=== PATIENT | female | born 1995 | race Caucasian/White ===

== ENCOUNTER 2021-01-29 01:25 | Inpatient (IN) | payer BC ==
[~2021-01-29] VITALS: Ht 157.5 cm; Wt 102.3 kg
[2021-01-29] MEDS: LACTATED RINGERS 1,000 ML IV SCH (01:19)
[2021-01-29 02:06] VITALS: BP 126/69
[2021-01-29] MEDS ORDERED: D5%-LACTATED RINGERS 1,000 ML IV SCH (05:00)
[2021-01-29] MEDS ORDERED: OXYTOCIN 30U/ 0.9% NaCL 500ML 500 ML IV PRN (05:00)
[2021-01-29] MEDS ORDERED: CALCIUM CARBONATE 500 MG TAB.CHEW PO PRN (05:00)
[2021-01-29] MEDS ORDERED: ONDANSETRON 2MG/ML, 2ML IVPush PRN ×2 (05:00→23:30)
[2021-01-29] MEDS ORDERED: OXYTOCIN 30U/ 0.9% NaCL 500ML 500 ML IV ONE (05:00)
[2021-01-29] MEDS ORDERED: FENTANYL PF 100 MCG/2ML IV PRN (05:00)
[2021-01-29] MEDS ORDERED: TERBUTALINE 1 MG/ML, 1ML SQ PRN (05:00)
[2021-01-29] MEDS ORDERED: TERBUTALINE 1 MG/ML, 1ML IVPush PRN (05:00)
[2021-01-29] MEDS ORDERED: FENTANYL PF 100 MCG/2ML IVPush PRN (05:00)
[2021-01-29 05:34] LABS: BASOPHILS % (AUTO) 1 % (0-1); EOSINOPHILS % (AUTO) 1 % (1-7); LYMPHOCYTES % (AUTO) 25 % (22-44); MEAN CORPUSCULAR HEMOGLOBIN 28.1 pg (27.0-34.8); MEAN CORPUSCULAR HGB CONC 33.1 g/dL (32.4-35.8); MEAN PLATELET VOLUME 8.6 fL (7.4-10.4); MONOCYTES % (AUTO) 9 % (2-9); NEUTROPHILS % (AUTO) 65 % (42-75); PLATELET COUNT 164 x10^3/uL (130-400); RED CELL DISTRIBUTION WIDTH 16.1 % (9.6-15.2)
[2021-01-29 19:00] VITALS: BP 115/66
[2021-01-29] MEDS ORDERED: BUPIVACAINE 0.25% ONE (21:30)
[2021-01-29] MEDS ORDERED: FENTANYL/BUPIV./NS/PF 250 ML EPIDCONT ONE (21:30)
[2021-01-29] MEDS ORDERED: DIPHENHYDRAMINE 50 MG/ML, 1ML IVPush PRN (23:30)
[2021-01-29] MEDS ORDERED: LACTATED RINGERS 1,000 ML IVBOLUS PRN (23:30)
[2021-01-29] MEDS ORDERED: LACTATED RINGERS 1,000 ML IV SCH (23:30)
[2021-01-29] MEDS ORDERED: EPHEDRINE 50 MG/ML, 1ML IVPush PRN (23:30)
[2021-01-29] MEDS ORDERED: FENTANYL/BUPIV./NS/PF 250 ML EPIDCONT SCH (23:30)
[2021-01-29] MEDS ORDERED: NALOXONE 0.4 MG/ML, 1ML IVPush PRN (23:30)
[2021-01-30] MEDS: LACTATED RINGERS 1,000 ML IV SCH ×5 (05:28→19:30)
[2021-01-30] MEDS ORDERED: METOCLOPRAMIDE 5 MG/ML, 2ML ONE (06:34)
[2021-01-30] MEDS ORDERED: SODIUM CITRATE/CITRIC ACID 15 ML UDC ONE ×2 (06:34)
[2021-01-30] MEDS ORDERED: FENTANYL PF 250 MCG/5ML ONE (06:48)
[2021-01-30] MEDS ORDERED: ALBUTEROL SULFATE 2.5 MG/3 ML ONE (07:41)
[2021-01-30] MEDS ORDERED: HYDROmorphone 2 MG/ML, 1ML ONE (07:46)
[2021-01-30] MEDS ORDERED: DIPHENHYDRAMINE 50 MG/ML, 1ML IVPush PRN (08:00)
[2021-01-30] MEDS ORDERED: FENTANYL PF 100 MCG/2ML IV PRN (08:00)
[2021-01-30] MEDS ORDERED: HYDROmorphone 1 MG/ML, 1ML INJ IVPush PRN (08:00)
[2021-01-30] MEDS ORDERED: OXYcodone 5 MG/5 ML ORAL.SOL UDC PO PRN (08:00)
[2021-01-30] MEDS ORDERED: EPHEDRINE 50 MG/ML, 1ML IVPush PRN (08:00)
[2021-01-30] MEDS ORDERED: ONDANSETRON 2MG/ML, 2ML IVPush PRN (08:00)
[2021-01-30 08:35] VITALS: BP 109/70
[2021-01-30] MEDS ORDERED: OXYcodone IR 5MG TABLET PO PRN ×2 (09:30)
[2021-01-30] MEDS ORDERED: ONDANSETRON 2MG/ML, 2ML IV PRN (09:30)
[2021-01-30] MEDS ORDERED: morphine SULFATE 10 MG/ML, 1ML IVPush PRN (09:30)
[2021-01-30] MEDS: OXYTOCIN 30U/ 0.9% NaCL 500ML 500 ML IV SCH ×2 (09:30→19:30)
[2021-01-30] MEDS ORDERED: ACETAMINOPHEN 325 MG TABLET PO PRN ×2 (09:30)
[2021-01-30] MEDS ORDERED: morphine SULFATE 10 MG/ML, 1ML IM PRN (09:30)
[2021-01-30] MEDS ORDERED: HYDROcodone/APAP 5/325 TABLET PO PRN ×2 (09:30)
[2021-01-30] MEDS: OXYcodone/APAP 5/325MG TABLET PO PRN ×3 (10:11→21:18)
[2021-01-30 10:15] VITALS: BP 115/75
[2021-01-30] MEDS: KETOROLAC 30 MG/1 ML IV SCH ×3 (10:15→21:17)
[2021-01-30 12:35] VITALS: BP 99/66
[2021-01-30 15:10] LABS: BASOPHILS % (AUTO) 1 % (0-1); EOSINOPHILS % (AUTO) 0 % (1-7); LYMPHOCYTES % (AUTO) 3 % (22-44); MEAN CORPUSCULAR HEMOGLOBIN 28.3 pg (27.0-34.8); MEAN CORPUSCULAR HGB CONC 32.9 g/dL (32.4-35.8); MEAN PLATELET VOLUME 8.8 fL (7.4-10.4); MONOCYTES % (AUTO) 5 % (2-9); NEUTROPHILS % (AUTO) 91 % (42-75); PLATELET COUNT 124 x10^3/uL (130-400); RED BLOOD COUNT 3.85 x10^6/uL (3.82-5.3); RED CELL DISTRIBUTION WIDTH 15.7 % (9.6-15.2)
[2021-01-30 16:00] VITALS: BP 101/62
[2021-01-30 19:00] VITALS: BP 95/61
[2021-01-30] MEDS: DOCUSATE 100 MG CAPSULE PO PRN (21:17)
[2021-01-30] MEDS: SIMETHICONE 80 MG CHEW TAB PO PRN (21:17)
[2021-01-31 00:05] VITALS: BP 103/70
[2021-01-31] MEDS: LACTATED RINGERS 1,000 ML IV SCH ×2 (01:30→05:30)
[2021-01-31] MEDS: OXYcodone/APAP 5/325MG TABLET PO PRN ×4 (01:42→22:19)
[2021-01-31] MEDS: KETOROLAC 30 MG/1 ML IV SCH ×4 (03:39→22:18)
[2021-01-31 04:15] VITALS: BP 94/60
[2021-01-31] MEDS: OXYTOCIN 30U/ 0.9% NaCL 500ML 500 ML IV SCH (05:30)
[2021-01-31] MEDS: PRENATAL VIT/IRON/FA 1 EACH TABLET PO SCH (07:49)
[2021-01-31] MEDS: SIMETHICONE 80 MG CHEW TAB PO PRN (07:49)
[2021-01-31] MEDS: DOCUSATE 100 MG CAPSULE PO PRN ×2 (07:49→22:18)
[2021-01-31 07:55] VITALS: BP 95/63
[2021-01-31 19:49] VITALS: BP 118/76
[2021-02-01] MEDS: OXYcodone/APAP 5/325MG TABLET PO PRN ×4 (02:07→19:39)
[2021-02-01] MEDS: KETOROLAC 30 MG/1 ML IV SCH (04:11)
[2021-02-01] MEDS: IBUPROFEN 600 MG TABLET PO PRN ×3 (04:21→19:39)
[2021-02-01 08:15] VITALS: BP 114/77
[2021-02-01] MEDS: SIMETHICONE 80 MG CHEW TAB PO PRN (09:11)
[2021-02-01] MEDS: PRENATAL VIT/IRON/FA 1 EACH TABLET PO SCH (09:11)
[2021-02-01] MEDS: DOCUSATE 100 MG CAPSULE PO PRN ×2 (09:11→19:38)
[2021-02-01 21:00] VITALS: BP 107/69
[2021-02-01] MEDS ORDERED: IBUP-1222 PO (21:22)
[2021-02-01] MEDS ORDERED: DOCU-131 PO (21:22)
[2021-02-01] MEDS ORDERED: OXYC1TAB14 PO (21:22)
== END 2021-02-01 23:00 | disposition home or self-care (01) | DRG 788 ==
LOC: LDOP 01:25 → LDIP 05:05 → 2NW 01-30 09:29
PROVIDERS: ADMIT Obstetrics & Gynecology; ATTEND Obstetrics & Gynecology
PROC: 10D00Z1 Extraction of Products of Conception, Low, Open Approach (ICD-10-PCS; principal; 2021-01-30)
PROC: 10H073Z Insertion of Monitoring Electrode into Products of Conception, Via Natural or Artificial Opening (ICD-10-PCS; 2021-01-30)
DX: O76 Abnormality in fetal heart rate and rhythm complicating labor and delivery (principal); Z37.0 Single live birth; N73.6 Female pelvic peritoneal adhesions (postinfective); Z20.822 Contact with and (suspected) exposure to COVID-19; N80.9 Endometriosis, unspecified; O77.0 Labor and delivery complicated by meconium in amniotic fluid; O99.892 Other specified diseases and conditions complicating childbirth; S01.01XA Laceration without foreign body of scalp, initial encounter; Z3A.39 39 weeks gestation of pregnancy; O99.214 Obesity complicating childbirth
CPT/HCPCS: 36415; 84112; 85025; 86592; 86850; 86900; 87635; 89060; 94640; G0378; J1170; J1885; J2405; J3010; J7120; Q0114

== ENCOUNTER 2021-02-05 12:49 | Emergency (ER) | payer BC ==
[~2021-02-05] VITALS: Ht 157.5 cm; Wt 101.7 kg
[~2021-02-05 12:49] MED LIST: DOCU-131 PO; IBUP-1222 PO; OXYC1TAB12 PO
--- NOTE | 2021-02-05 13:16 | NUR ---
PER [facility] ROOM NOT NEEDED NOW, VSS. EKG DONE IN TRIAGE.
[2021-02-05 13:35] LABS: BASOPHILS % (AUTO) 1 % (0-1); EOSINOPHILS % (AUTO) 2 % (1-7); LYMPHOCYTES % (AUTO) 17 % (22-44); MEAN CORPUSCULAR HEMOGLOBIN 28.3 pg (27.0-34.8); MEAN CORPUSCULAR HGB CONC 33.2 g/dL (32.4-35.8); MEAN PLATELET VOLUME 8.2 fL (7.4-10.4); MONOCYTES % (AUTO) 8 % (2-9); NEUTROPHILS % (AUTO) 72 % (42-75); PLATELET COUNT 228 x10^3/uL (130-400); RED BLOOD COUNT 3.84 x10^6/uL (3.82-5.3); RED CELL DISTRIBUTION WIDTH 15.4 % (9.6-15.2)
[2021-02-05 13:55] LABS: ANION GAP 8 mmol/L (5-15); CHLORIDE 109 mmol/L (98-107)
[2021-02-05 13:57] LABS: BILIRUBIN,TOTAL 0.3 mg/dL (0.2-1.0); CALCIUM 8.8 mg/dL (8.5-10.1); CREATININE 0.66 mg/dL (0.55-1.02)
[2021-02-05 13:58] LABS: ALANINE AMINOTRANSFERASE 83 U/L (12-78); ALKALINE PHOSPHATASE 83 U/L (45-117); TOTAL PROTEIN 6.3 g/dL (6.4-8.2)
[2021-02-05 13:59] LABS: ALBUMIN 2.5 g/dL (3.4-5.0); TROPONIN I < 0.015 ng/mL (0.000-0.045)
--- NOTE | 2021-02-05 14:29 | NUR ---
GLASS TUBE BENDER: PT TO ROOM FROM [facility]
--- NOTE | 2021-02-05 14:40 | NUR ---
MAXINE RN: THIS IS A 25 YEAR OLD FEMALE WHO C/O CHEST PAIN, SOB AND BLE SWELLING X2 DAYS. PATIENT HAD EMERGENCY Monday01/30/2021 DUE TO DISTRESS. PLACED PT ON HEAD BOYS TENNIS COACH SINSUS, CONTINOUS SP02 AND CYCLE VS. MD AT BS
--- NOTE | 2021-02-05 15:05 | NUR ---
REPORT RECEIVED FROM MALATHI BIANCHI, THIS RN ASSUMING CARE.
[2021-02-05] MEDS ORDERED: SODIUM CHLORIDE FLUSH 10ML SYR IVF ONE (15:30)
--- NOTE | 2021-02-05 16:16 | NUR ---
PIV PLACED BY EDTA, CT NOTIFIED PT READY FOR SCAN.
[2021-02-05] MEDS ORDERED: VITAMIN D PO (16:29)
[2021-02-05] MEDS ORDERED: PRENATAL PO (16:29)
--- NOTE | 2021-02-05 17:01 | NUR ---
PT TO CT AT THIS TIME.
[2021-02-05] MEDS ORDERED: OMNIPAQUE 350 MG/ML, 75ML BOTTLE ONE (17:12)
--- NOTE | 2021-02-05 17:20 | NUR ---
pt back from CT
--- NOTE | 2021-02-05 18:11 | NUR ---
dc orders received, awaiting dc paperwork from .
--- NOTE | 2021-02-05 18:53 | NUR ---
cassius welch at bedside to update pt with results and poc. report given at bedside to RN Helio who is assuming care. pt a&o, resps even and unlabored, sinus alvarado rate 50s with no ectopy on cardiac cath lab technologist. pt to have abx.
[2021-02-05] MEDS ORDERED: AZITHROMYCIN 500 MG in SODIUM CHLORIDE 0.9% 250 ML IV ONE (19:00)
[2021-02-05] MEDS ORDERED: CEFTRIAXONE 1,000 MG in DEXTROSE 5% 50 ML IVPB ONE (19:00)
[2021-02-05 21:27] VITALS: BP 138/87
== END 2021-02-05 21:34 | disposition home or self-care (01) ==
LOC: ED 17:24
DX: J15.9 Unspecified bacterial pneumonia (principal); Z20.822 Contact with and (suspected) exposure to COVID-19; R06.02 Shortness of breath; R42 Dizziness and giddiness; R07.89 Other chest pain
CPT/HCPCS: 36415; 71045; 71275; 80053; 84484; 85025; 93005; 96365; 96368; 99285; J0456; J0696; J7050; Q9967; U0003; U0005

== ENCOUNTER 2021-02-09 13:42 | Emergency (ER) | payer BC ==
[~2021-02-09] VITALS: Ht 157.5 cm; Wt 93.0 kg
[~2021-02-09 13:42] MED LIST changes: -OXYC1TAB12 PO; +OXYC1TAB14 PO; +PRENATAL PO; +VITAMIN D PO
--- NOTE | 2021-02-09 15:45 | NUR ---
TASK RN: URINE COLLECTED AND SENT TO LAB. PT IN LOBBY AWAITING ROOM.
[2021-02-09 16:00] LABS: MICROSCOPIC NOT IND
--- NOTE | 2021-02-09 16:57 | NUR ---
not in lobby when called for room placement.
[2021-02-09 17:37] LABS: BASOPHILS % (AUTO) 1 % (0-1); EOSINOPHILS % (AUTO) 1 % (1-7); LYMPHOCYTES % (AUTO) 24 % (22-44); MEAN CORPUSCULAR HEMOGLOBIN 27.4 pg (27.0-34.8); MEAN CORPUSCULAR HGB CONC 32.4 g/dL (32.4-35.8); MEAN PLATELET VOLUME 7.6 fL (7.4-10.4); MONOCYTES % (AUTO) 6 % (2-9); NEUTROPHILS % (AUTO) 68 % (42-75); PLATELET COUNT 323 x10^3/uL (130-400); RED BLOOD COUNT 4.87 x10^6/uL (3.82-5.3); RED CELL DISTRIBUTION WIDTH 15.6 % (9.6-15.2)
[2021-02-09 17:47] LABS: ALANINE AMINOTRANSFERASE 49 U/L (12-78); ALBUMIN 3.2 g/dL (3.4-5.0); ANION GAP 8 mmol/L (5-15); CALCIUM 9.2 mg/dL (8.5-10.1); CHLORIDE 106 mmol/L (98-107); CREATININE 0.75 mg/dL (0.55-1.02)
[2021-02-09 17:50] LABS: ALKALINE PHOSPHATASE 78 U/L (45-117); BILIRUBIN,TOTAL 0.5 mg/dL (0.2-1.0); TOTAL PROTEIN 7.8 g/dL (6.4-8.2)
--- NOTE | 2021-02-09 18:14 | NUR ---
[facility] [place] at bedside for eval
[2021-02-09 18:27] VITALS: BP 117/67
--- NOTE | 2021-02-09 18:41 | NUR ---
DC INSTRUCTIONS REVIEWED
== END 2021-02-09 18:43 | disposition home or self-care (01) ==
LOC: ED 18:00
DX: R10.84 Generalized abdominal pain (principal); K62.5 Hemorrhage of anus and rectum; R06.02 Shortness of breath
CPT/HCPCS: 36415; 80053; 81003; 83690; 85025; 99283